=== PATIENT | female | born 1960 | race Two or more races ===

== ENCOUNTER 2017-11-30 16:22 | Emergency (ER) | payer OTHER ==
[~2017-11-30] VITALS: Ht 160 cm; Wt 52.2 kg
[2017-11-30 16:31] VITALS: BP 131/74
--- NOTE | 2017-11-30 16:56 | Emergency Room Report ---
History of Present Illness General Chief Complaint: Upper Extremity Injury Source: Patient Present Illness HPI Patient is a 57-year-old female with history of diabetes who presents today with complaints of right arm pain that began this morning. 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 She states the pain has since resolved and she denies pain at this time. No medication has been taken. She denies any falls or trauma. She denies any tobacco, alcohol or drug use. Allergies: Coded Allergies: NAPROXEN (Verified Allergy, Severe, Rash, 11/30/17) Patient History Last Menstrual Period: na Now: No Reviewed Nursing Documentation: PMH: Agreed; PSxH: Agreed Nursing Documentation-PMH Past Medical History: No History, Except For Hx Diabetes: Yes Review of Systems Musculoskeletal: Reports: other - arm pain All Other Systems: negative except mentioned in HPI Physical Exam Vital Signs Date Time Temp Pulse Resp B/P (MAP) Pulse Ox O2 Delivery O2 Flow Rate FiO2 11/30/17 16:24 98.3 79 18 131/74 98 Room Air 98.2 Sp02 EP Interpretation: reviewed, normal General Appearance: no apparent distress, alert, GCS 15, non-toxic Head: normocephalic, atraumatic Eyes: bilateral eye normal inspection, bilateral eye PERRL ENT: hearing grossly normal, normal pharynx, no angioedema, normal voice Neck: full range of motion, supple/symm/no masses Respiratory: chest non-tender, lungs clear, normal breath sounds, speaking full sentences Cardiovascular #1: regular rate, rhythm, no edema Cardiovascular #2: 2+ carotid (R), 2+ carotid (L), 2+ radial (R), 2+ radial (L) , 2+ dorsalis pedis (R), 2+ dorsalis pedis (L) Gastrointestinal: normal bowel sounds, non tender, soft, non-distended, no guarding, no rebound Rectal: deferred Genitourinary: normal inspection, no CVA tenderness Musculoskeletal: back normal, gait/station normal, normal range of motion, non- tender, calf tenderness, other - Full range of motion the right upper extremity , no tenderness to palpation over the right biceps, right shoulder right elbow. Neurologic: alert, oriented x3, responsive, motor strength/tone normal, sensory intact, speech normal Psychiatric: judgement/insight normal, memory normal, mood/affect normal, no suicidal/homicidal ideation Reflexes: 3+ bicep (R), 3+ bicep (L), 3+ tricep (R), 3+ tricep (L), 3+ knee (R) , 3+ knee (L) Skin: normal color, no rash, warm/dry, well hydrated Lymphatic: no adenopathy Medical Decision Making PA Attestation Supervising physician is Dr. Bautista Reaction to Intervention: Improved Diagnostic Impression: Primary Impression: Arm pain, right ER Course Patient has no tenderness palpation of the right upper extremity. Imaging was considered benign indicated at this time. Rogelio wrap was placed on the right upper extremity for compression, neurovascularly intact before and after Rogelio wrap placed. Patient's instructed to take Tylenol and Motrin at home. Patient understands plan and is agreeable. Last Vital Signs Date Time Temp Pulse Resp B/P (MAP) Pulse Ox O2 Delivery O2 Flow Rate FiO2 11/30/17 16:31 98.2 79 18 131/74 98 Room Air 98.2 Status: improved Disposition: HOME, SELF-CARE Condition: Stable Ava Crenshaw Nov 30, 2017 16:56
[2017-11-30 17:03] VITALS: BP 131/74
== END 2017-11-30 17:00 | disposition home or self-care (01) ==
LOC: EMR 17:00
DX: M79.601 Pain in right arm (principal); Y92.009 Unspecified place in unspecified non-institutional (private) residence as the place of occurrence of the external cause; Y93.E5 Activity, floor mopping and cleaning; Y99.0 Civilian activity done for income or pay; E11.9 Type 2 diabetes mellitus without complications
CPT/HCPCS: 99282